=== PATIENT | female | born 1970 | race Hispanic/Latino ===

== ENCOUNTER 2016-08-07 08:09 | Outpatient (CLI) | payer BC, OTHER ==
[2016-08-07 08:55] LABS: #Basophils 0.1 thou/uL (0.0-0.2); #Eosinphils 0.1 thou/uL (0.0-0.7); #Lymphocytes 1.6 thou/uL (1.20-3.40); #Monocytes 0.5 thou/uL (0.11-0.59); #Neutrophils 4.5 thou/uL (1.40-6.50); %Basophils 1.3 % (0.0-1.0); %Eosinophils 1.2 % (0.0-10.0); %Lymphocytes 23.8 % (21.0-51.0); %Monocytes 7.3 % (0.0-10.0); %Neutrophils 66.5 % (42.0-75.0); Hemoglobin 13.1 g/dL (12.0-16.0); Mean Corpuscular HGB CONC 33.1 g/dL (32.0-36.0); Mean Corpuscular Hemoglobin 31.1 pg (27.0-31.0); Mean Corpuscular Volume 93.9 fl (81.0-99.0); Mean Platelet Volume 9.1 fL (7.4-10.4); Platelet Count 327 thou/uL (130-400); RBC Distribution Width 11.6 % (11.5-14.5); White Blood Cell (WBC) Count 6.7 thou/uL (4.8-10.8)
[2016-08-07 09:15] LABS: ALT (SGPT) 13 U/L (0-55); AST (SGOT) 16 U/L (5-34); Albumin 4.6 g/dL (3.5-5.0); Alkaline Phosphatase 78 U/L (40-150); Anion Gap 14 mmol/L (10-20); BUN (Urea Nitrogen) 20 mg/dL (7.0-18.7); Bilirubin, Total 0.5 mg/dL (0.2-1.2); CRP (Inflammatory) 1.17 mg/dL (= or < 0.5); Calc. Creatinine Clearance 0 mL/min (70-130); Calcium 9.7 mg/dL (7.8-10.44); Carbon Dioxide 25 mmol/L (22-29); Chloride 103 mmol/L (98-107); Estimated GFR-MDRD 83; Globulin 3.4 g/dL (2.4-3.5); Glucose 94 mg/dL (70-105); Potassium 4.2 mmol/L (3.5-5.1); Sodium 138 mmol/L (136-145)
--- NOTE | 2016-08-07 10:13 | RAD ---
LEFT KNEE 4 VIEWS: HISTORY: Left knee pain. FINDINGS/IMPRESSION: No fracture, dislocation, or bony destruction is seen. POS: [id number]
== END 2016-08-07 08:10 | disposition home or self-care (01) ==
LOC: MADLAB 08:09
PROVIDERS: ATTEND Internal Medicine Rheumatology
DX: M17.12 Unilateral primary osteoarthritis, left knee (principal); M45.0 Ankylosing spondylitis of multiple sites in spine
CPT/HCPCS: 36415; 80053; 85025; 85652; 86140

== ENCOUNTER 2016-08-10 11:32 | Outpatient (CLI) | payer BC, OTHER | END 2016-08-10 11:33 | disposition home or self-care (01) | LOC: MADLAB 11:32 | PROVIDERS: ATTEND Internal Medicine Rheumatology | DX: M45.0 Ankylosing spondylitis of multiple sites in spine (principal) | CPT/HCPCS: 36415; 86480 ==

== ENCOUNTER 2017-08-26 10:50 | Outpatient (CLI) | payer BC, OTHER ==
[2017-08-26 10:59] LABS: #Basophils 0.1 thou/uL (0.0-0.2); #Eosinphils 0.1 thou/uL (0.0-0.7); #Lymphocytes 2.7 thou/uL (1.20-3.40); #Monocytes 0.8 thou/uL (0.11-0.59); #Neutrophils 3.5 thou/uL (1.40-6.50); %Basophils 1.4 % (0.0-1.0); %Eosinophils 1.5 % (0.0-10.0); %Lymphocytes 37.4 % (21.0-51.0); %Monocytes 10.7 % (0.0-10.0); Hemoglobin 12.1 g/dL (12.0-16.0); Mean Corpuscular HGB CONC 32.9 g/dL (32.0-36.0); Mean Corpuscular Hemoglobin 31.7 pg (27.0-31.0); Mean Corpuscular Volume 96.5 fl (81.0-99.0); Mean Platelet Volume 7.1 fL (7.4-10.4); Platelet Count 317 thou/uL (130-400); RBC Distribution Width 12.7 % (11.5-14.5); Red Blood Cell (RBC) Count 3.82 mill/uL (4.20-5.40); White Blood Cell (WBC) Count 7.1 thou/uL (4.8-10.8)
[2017-08-26 11:13] LABS: ALT (SGPT) 14 U/L (8-55); AST (SGOT) 17 U/L (5-34); Albumin 4.2 g/dL (3.5-5.0); Alkaline Phosphatase 65 U/L (40-150); Anion Gap 14 mmol/L (10-20); BUN (Urea Nitrogen) 21 mg/dL (7.0-18.7); Bilirubin, Total 0.4 mg/dL (0.2-1.2); Calc. Creatinine Clearance 0 mL/min (70-130); Calcium 9.1 mg/dL (7.8-10.44); Carbon Dioxide 23 mmol/L (22-29); Chloride 104 mmol/L (98-107); Estimated GFR-MDRD 83; Globulin 3.5 g/dL (2.4-3.5); Glucose 68 mg/dL (70-105); Potassium 4.2 mmol/L (3.5-5.1); Protein, Total 7.7 g/dL (6.0-8.3); Sodium 137 mmol/L (136-145)
[2017-08-26 16:54] LABS: CRP (Inflammatory) 1.09 mg/dL (= or < 0.5)
== END 2017-08-26 10:51 | disposition home or self-care (01) ==
LOC: MADLAB 10:50
PROVIDERS: ATTEND Internal Medicine Rheumatology
DX: M45.0 Ankylosing spondylitis of multiple sites in spine (principal)
CPT/HCPCS: 36415; 80053; 85025; 85652; 86140

== ENCOUNTER 2017-11-24 07:27 | Outpatient (CLI) | payer BC, OTHER ==
[2017-11-24 07:55] LABS: #Basophils 0.1 thou/uL (0.0-0.2); #Eosinphils 0.2 thou/uL (0.0-0.7); #Lymphocytes 2.6 thou/uL (1.20-3.40); #Monocytes 0.7 thou/uL (0.11-0.59); #Neutrophils 3.3 thou/uL (1.40-6.50); %Basophils 1.2 % (0.0-1.0); %Eosinophils 2.7 % (0.0-10.0); %Lymphocytes 38.4 % (21.0-51.0); %Neutrophils 47.8 % (42.0-75.0); Hemoglobin 12.1 g/dL (12.0-16.0); Mean Corpuscular HGB CONC 32.3 g/dL (32.0-36.0); Mean Corpuscular Hemoglobin 29.6 pg (27.0-31.0); Mean Corpuscular Volume 91.6 fl (81.0-99.0); Mean Platelet Volume 7.9 fL (7.4-10.4); Platelet Count 342 thou/uL (130-400); RBC Distribution Width 12.2 % (11.5-14.5); Red Blood Cell (RBC) Count 4.09 mill/uL (4.20-5.40); White Blood Cell (WBC) Count 6.9 thou/uL (4.8-10.8)
[2017-11-24 08:11] LABS: ALT (SGPT) 15 U/L (8-55); AST (SGOT) 17 U/L (5-34); Alkaline Phosphatase 64 U/L (40-150); Anion Gap 13 mmol/L (10-20); BUN (Urea Nitrogen) 23 mg/dL (7.0-18.7); Bilirubin, Total 0.4 mg/dL (0.2-1.2); Calc. Creatinine Clearance 0 mL/min (70-130); Calcium 8.9 mg/dL (7.8-10.44); Carbon Dioxide 24 mmol/L (22-29); Chloride 105 mmol/L (98-107); Estimated GFR-MDRD 89; Globulin 3.5 g/dL (2.4-3.5); Glucose 93 mg/dL (70-105); Potassium 4.3 mmol/L (3.5-5.1); Protein, Total 7.5 g/dL (6.0-8.3); Sodium 138 mmol/L (136-145)
== END 2017-11-24 07:28 | disposition home or self-care (01) ==
LOC: MADLAB 07:27
PROVIDERS: ATTEND Internal Medicine Rheumatology
DX: M45.0 Ankylosing spondylitis of multiple sites in spine (principal)
CPT/HCPCS: 36415; 80053; 85025; 85652; 86140

== ENCOUNTER 2018-03-03 08:00 | Outpatient (CLI) | payer BC, OTHER ==
[2018-03-03 08:22] LABS: #Basophils 0.1 thou/uL (0.0-0.2); #Eosinphils 0.2 thou/uL (0.0-0.7); #Lymphocytes 2.1 thou/uL (1.20-3.40); #Monocytes 0.5 thou/uL (0.11-0.59); #Neutrophils 2.8 thou/uL (1.40-6.50); %Eosinophils 2.8 % (0.0-10.0); %Lymphocytes 36.9 % (21.0-51.0); %Monocytes 8.9 % (0.0-10.0); %Neutrophils 50.4 % (42.0-75.0); Hemoglobin 12.5 g/dL (12.0-16.0); Mean Corpuscular HGB CONC 32.3 g/dL (32.0-36.0); Mean Corpuscular Hemoglobin 30.1 pg (27.0-31.0); Mean Corpuscular Volume 93.1 fL (78.0-98.0); Mean Platelet Volume 8.5 fL (7.4-10.4); Platelet Count 299 thou/uL (130-400); RBC Distribution Width 12.8 % (11.5-14.5); Red Blood Cell (RBC) Count 4.17 mill/uL (4.20-5.40); White Blood Cell (WBC) Count 5.6 thou/uL (4.8-10.8)
[2018-03-03 08:35] LABS: ALT (SGPT) 18 U/L (8-55); AST (SGOT) 17 U/L (5-34); Albumin 4.2 g/dL (3.5-5.0); Alkaline Phosphatase 77 U/L (40-150); Anion Gap 13 mmol/L (10-20); BUN (Urea Nitrogen) 24 mg/dL (7.0-18.7); Bilirubin, Total 0.4 mg/dL (0.2-1.2); Calc. Creatinine Clearance 0 mL/min (70-130); Calcium 9.4 mg/dL (7.8-10.44); Carbon Dioxide 24 mmol/L (22-29); Chloride 106 mmol/L (98-107); Estimated GFR-MDRD 75; Globulin 3.5 g/dL (2.4-3.5); Glucose 93 mg/dL (70-105); Potassium 4.3 mmol/L (3.5-5.1); Protein, Total 7.7 g/dL (6.0-8.3); Sodium 139 mmol/L (136-145)
== END 2018-03-03 08:01 | disposition home or self-care (01) ==
LOC: MADLAB 08:00
PROVIDERS: ATTEND Internal Medicine Rheumatology
DX: M45.0 Ankylosing spondylitis of multiple sites in spine (principal)
CPT/HCPCS: 36415; 80053; 85025; 85652; 86140

== ENCOUNTER 2018-10-14 07:36 | Outpatient (CLI) | payer BC, OTHER ==
[2018-10-14 08:29] LABS: #Basophils 0.1 thou/uL (0.0-0.2); #Eosinphils 0.2 thou/uL (0.0-0.7); #Lymphocytes 1.9 thou/uL (1.20-3.40); #Monocytes 0.5 thou/uL (0.11-0.59); %Basophils 1.7 % (0.0-1.0); %Eosinophils 2.8 % (0.0-10.0); %Lymphocytes 33.5 % (21.0-51.0); %Monocytes 8.5 % (0.0-10.0); %Neutrophils 53.5 % (42.0-75.0); Mean Corpuscular HGB CONC 32.6 g/dL (32.0-36.0); Mean Corpuscular Hemoglobin 30.5 pg (27.0-31.0); Mean Corpuscular Volume 93.6 fL (78.0-98.0); Mean Platelet Volume 8.5 fL (7.4-10.4); Platelet Count 273 thou/uL (130-400); RBC Distribution Width 11.7 % (11.5-14.5); Red Blood Cell (RBC) Count 3.94 mill/uL (4.20-5.40); White Blood Cell (WBC) Count 5.5 thou/uL (4.8-10.8)
[2018-10-14 08:50] LABS: ALT (SGPT) 24 U/L (8-55); AST (SGOT) 21 U/L (5-34); Albumin 4.2 g/dL (3.5-5.0); Alkaline Phosphatase 74 U/L (40-150); Anion Gap 11 mmol/L (10-20); BUN (Urea Nitrogen) 22 mg/dL (7.0-18.7); Bilirubin, Total 0.4 mg/dL (0.2-1.2); Calc. Creatinine Clearance 0 mL/min (70-130); Calcium 9.4 mg/dL (7.8-10.44); Carbon Dioxide 28 mmol/L (22-29); Chloride 106 mmol/L (98-107); Estimated GFR-MDRD 80; Globulin 3.4 g/dL (2.4-3.5); Glucose 101 mg/dL (70-105); Potassium 4.1 mmol/L (3.5-5.1); Protein, Total 7.6 g/dL (6.0-8.3); Sodium 141 mmol/L (136-145)
[2018-10-14 16:58] LABS: CRP (Inflammatory) 0.75 mg/dL (= or < 0.5)
== END 2018-10-14 07:37 | disposition home or self-care (01) ==
LOC: MADLAB 07:36
PROVIDERS: ATTEND Internal Medicine Rheumatology
DX: M45.0 Ankylosing spondylitis of multiple sites in spine (principal)
CPT/HCPCS: 36415; 80053; 85025; 85652; 86140

== ENCOUNTER 2019-04-26 07:23 | Outpatient (CLI) | payer BC, OTHER ==
[2019-04-26 07:45] LABS: #Basophils 0.1 thou/uL (0.0-0.2); #Eosinphils 0.2 thou/uL (0.0-0.7); #Lymphocytes 2.4 thou/uL (1.20-3.40); #Monocytes 0.6 thou/uL (0.11-0.59); #Neutrophils 3.5 thou/uL (1.40-6.50); %Basophils 1.3 % (0.0-1.0); %Eosinophils 2.7 % (0.0-10.0); %Lymphocytes 35.4 % (21.0-51.0); %Monocytes 9.5 % (0.0-10.0); %Neutrophils 51.1 % (42.0-75.0); Hemoglobin 12.6 g/dL (12.0-16.0); Mean Corpuscular HGB CONC 32.6 g/dL (32.0-36.0); Mean Corpuscular Hemoglobin 31.1 pg (27.0-31.0); Mean Corpuscular Volume 95.5 fL (78.0-98.0); Platelet Count 264 thou/uL (130-400); RBC Distribution Width 12.4 % (11.5-14.5); Red Blood Cell (RBC) Count 4.04 mill/uL (4.20-5.40); White Blood Cell (WBC) Count 6.7 thou/uL (4.8-10.8)
[2019-04-26 08:37] LABS: ALT (SGPT) 24 U/L (8-55); AST (SGOT) 21 U/L (5-34); Albumin 4.3 g/dL (3.5-5.0); Alkaline Phosphatase 73 U/L (40-110); Anion Gap 13 mmol/L (10-20); BUN (Urea Nitrogen) 18 mg/dL (7.0-18.7); Bilirubin, Total 0.4 mg/dL (0.2-1.2); CRP (Inflammatory) 0.77 mg/dL (= or < 0.5); Calc. Creatinine Clearance 0 mL/min (70-130); Calcium 9.4 mg/dL (7.8-10.44); Carbon Dioxide 25 mmol/L (22-29); Chloride 105 mmol/L (98-107); Estimated GFR-MDRD 81; Globulin 3.4 g/dL (2.4-3.5); Glucose 90 mg/dL (70-105); Protein, Total 7.7 g/dL (6.0-8.3); Sodium 139 mmol/L (136-145)
== END 2019-04-26 07:24 | disposition home or self-care (01) ==
LOC: MADLAB 07:23
PROVIDERS: ATTEND Internal Medicine Rheumatology
DX: M45.0 Ankylosing spondylitis of multiple sites in spine (principal)
CPT/HCPCS: 36415; 80053; 85025; 85652; 86140

== ENCOUNTER 2020-02-07 07:42 | Outpatient (CLI) | payer BC, OTHER ==
[2020-02-07 07:58] LABS: #Basophils 0.1 thou/uL (0.0-0.2); #Eosinphils 0.1 thou/uL (0.0-0.7); #Lymphocytes 2.1 thou/uL (1.20-3.40); #Monocytes 0.6 thou/uL (0.11-0.59); %Basophils 1.6 % (0.0-1.0); %Eosinophils 2.2 % (0.0-10.0); %Lymphocytes 35.6 % (21.0-51.0); %Monocytes 9.3 % (0.0-10.0); %Neutrophils 51.2 % (42.0-75.0); Hemoglobin 13.2 g/dL (12.0-16.0); Mean Corpuscular HGB CONC 31.1 g/dL (32.0-36.0); Mean Corpuscular Hemoglobin 29.5 pg (27.0-31.0); Mean Corpuscular Volume 94.9 fL (78.0-98.0); Mean Platelet Volume 8.9 fL (7.4-10.4); Platelet Count 314 thou/uL (130-400); RBC Distribution Width 12.1 % (11.5-14.5); Red Blood Cell (RBC) Count 4.48 mill/uL (4.20-5.40); White Blood Cell (WBC) Count 5.9 thou/uL (4.8-10.8)
[2020-02-07 08:17] LABS: ALT (SGPT) 23 U/L (8-55); AST (SGOT) 24 U/L (5-34); Albumin 4.4 g/dL (3.5-5.0); Alkaline Phosphatase 77 U/L (40-110); Anion Gap 13 mmol/L (10-20); BUN (Urea Nitrogen) 13 mg/dL (7.0-18.7); Bilirubin, Total 0.4 mg/dL (0.2-1.2); CRP (Inflammatory) 1.04 mg/dL (= or < 0.5); Calc. Creatinine Clearance 0 mL/min (70-130); Calcium 9.3 mg/dL (7.8-10.44); Carbon Dioxide 27 mmol/L (22-29); Chloride 103 mmol/L (98-107); Estimated GFR-MDRD 82; Globulin 3.7 g/dL (2.4-3.5); Glucose 84 mg/dL (70-105); Protein, Total 8.1 g/dL (6.0-8.3); Sodium 139 mmol/L (136-145)
== END 2020-02-07 07:43 | disposition home or self-care (01) ==
LOC: MADLAB 07:42
PROVIDERS: ATTEND Internal Medicine Rheumatology
DX: M45.0 Ankylosing spondylitis of multiple sites in spine (principal)
CPT/HCPCS: 36415; 80053; 85025; 85652; 86140

== ENCOUNTER 2020-06-28 16:11 | Emergency (ER) | payer BC ==
[~2020-06-28 16:11] MED LIST: Iopamidol 370 76% 100 ML VIAL ONE; Sodium Chloride 0.9% 1,000 ML BAG ONE
[2020-06-28] MEDS ORDERED: Morphine 4 MG/ML VIAL ONE (17:15)
[2020-06-28] MEDS ORDERED: Ondansetron PF 4 MG/2 ML Vial ONE (17:15)
--- NOTE | 2020-06-28 17:19 | RAD ---
RADIOGRAPH CHEST 1 VIEW: DATE: 06/28/2020 HISTORY: 49-year-old female with right-sided chest pain FINDINGS: There are no airspace densities, pulmonary edema, pneumothorax, or cardiomegaly. The lateral costophr enic angles are sharp. No pneumoperitoneum. IMPRESSION: No acute cardiopulmonary findings.
[2020-06-28 18:06] LABS: Bilirubin Negative (Negative); Blood, Urine Trace (Negative); Glucose, Urine (Dipstick) Negative (Negative); Ketone, Urine Negative (Negative); Leukocyte Trace (Negative); Nitrite Negative (Negative); Protein, Urine (Dipstick) Negative (Neg-Trace); Specific Gravity, Urine 1.015 (1.005-1.030); Urobilinogen 0.2 mg/dL (Less than 2)
[2020-06-28 18:08] LABS: Bacteria/HPF 1+ HPF (None Seen); Clarity Hazy (Clear); RBC/HPF 0-3 HPF (0-3)
[2020-06-28 18:10] LABS: #Basophils 0.1 thou/uL (0.0-0.2); #Eosinphils 0.2 thou/uL (0.0-0.7); #Lymphocytes 2.1 thou/uL (1.20-3.40); #Monocytes 1.1 thou/uL (0.11-0.59); #Neutrophils 6.7 thou/uL (1.40-6.50); %Basophils 1.1 % (0.0-1.0); %Eosinophils 1.5 % (0.0-10.0); %Lymphocytes 20.7 % (21.0-51.0); %Monocytes 10.8 % (0.0-10.0); %Neutrophils 65.9 % (42.0-75.0); Hemoglobin 13.4 g/dL (12.0-16.0); Mean Corpuscular HGB CONC 34.2 g/dL (32.0-36.0); Mean Corpuscular Hemoglobin 32.2 pg (27.0-31.0); Mean Corpuscular Volume 94.3 fL (78.0-98.0); Mean Platelet Volume 7.8 fL (7.4-10.4); Platelet Count 275 thou/uL (130-400); RBC Distribution Width 11.3 % (11.5-14.5); Red Blood Cell (RBC) Count 4.17 mill/uL (4.20-5.40); White Blood Cell (WBC) Count 10.2 thou/uL (4.8-10.8)
[2020-06-28 18:18] LABS: ALT (SGPT) 30 U/L (8-55); AST (SGOT) 23 U/L (5-34); Albumin 4.4 g/dL (3.5-5.0); Alkaline Phosphatase 95 U/L (40-110); Anion Gap 16 mmol/L (10-20); BUN (Urea Nitrogen) 17 mg/dL (7.0-18.7); Bilirubin, Total 0.3 mg/dL (0.2-1.2); Calc. Creatinine Clearance 0 mL/min (70-130); Carbon Dioxide 22 mmol/L (22-29); Chloride 105 mmol/L (98-107); Globulin 3.3 g/dL (2.4-3.5); Glucose 106 mg/dL (70-105); Lipase 10 U/L (8-78); Potassium 4.2 mmol/L (3.5-5.1); Protein, Total 7.7 g/dL (6.0-8.3); Sodium 139 mmol/L (136-145)
--- NOTE | 2020-06-28 19:46 | CT ---
CT ABDOMEN AND PELVIS PERFORMED WITH CONTRAST ENHANCEMENT: 06/28/20 HISTORY: Abdominal pain. The lung bases are clear. The liver, spleen, pancreas, and gallbladder regions all appear unremarkable. Right and left adrenal glands are normal. Right and left kidneys are normal in size. Three punctate n onobstructing left renal calculi are seen. No obstruction or evidence of any ureteral calculus. No si gnificant periaortic or mesenteric adenopathy. No signs of obstruction. CT OF PELVIS PERFORMED WITH CONTRAST: The appendix is unremarkable. No adenopathy, mass or free fluid. Air seen at the soft tissue along th e anterior abdominal wall is presumed to be related to injection. Arthritic changes of the spine and postop changes of the L5-S1 level are seen. IMPRESSION: Punctate, nonobstructing left renal calculi. No acute findings of the abdomen or pelvis. POS: OFF
== END 2020-06-28 21:26 | disposition short-term general hospital (02) ==
LOC: MADERS 16:11
DX: R10.11 Right upper quadrant pain (principal); R10.816 Epigastric abdominal tenderness; R00.0 Tachycardia, unspecified; M45.9 Ankylosing spondylitis of unspecified sites in spine; R11.2 Nausea with vomiting, unspecified; R19.7 Diarrhea, unspecified
CPT/HCPCS: 71045; 74177; 80053; 81003; 81015; 83605; 83690; 84484; 85025; 93005; 94760; 96374; 96375; J2270; J2405; J7050; Q9967

== ENCOUNTER 2020-12-30 10:44 | Outpatient (CLI) | payer BC, OTHER ==
[2020-12-30 11:19] LABS: ALT (SGPT) 43 U/L (8-55); AST (SGOT) 33 U/L (5-34); Albumin 4.2 g/dL (3.5-5.0); Alkaline Phosphatase 95 U/L (40-110); Anion Gap 14 mmol/L (10-20); BUN (Urea Nitrogen) 15 mg/dL (7.0-18.7); Bilirubin, Total 0.3 mg/dL (0.2-1.2); CRP (Inflammatory) 1.01 mg/dL (= or < 0.5); Calc. Creatinine Clearance 0 mL/min (70-130); Calcium 9.7 mg/dL (7.8-10.44); Carbon Dioxide 28 mmol/L (22-29); Chloride 102 mmol/L (98-107); Globulin 3.6 g/dL (2.4-3.5); Glucose 97 mg/dL (70-105); Potassium 4.1 mmol/L (3.5-5.1); Protein, Total 7.8 g/dL (6.0-8.3); Sodium 140 mmol/L (136-145)
[2020-12-30 11:27] LABS: #Basophils 0.1 thou/uL (0.0-0.2); #Eosinphils 0.2 thou/uL (0.0-0.7); #Lymphocytes 2.6 thou/uL (1.20-3.40); #Monocytes 0.7 thou/uL (0.11-0.59); #Neutrophils 3.1 thou/uL (1.40-6.50); %Basophils 1.3 % (0.0-1.0); %Eosinophils 2.3 % (0.0-10.0); %Lymphocytes 38.5 % (21.0-51.0); %Monocytes 10.8 % (0.0-10.0); %Neutrophils 47.1 % (42.0-75.0); Hemoglobin 13.2 g/dL (12.0-16.0); Mean Corpuscular Hemoglobin 32.1 pg (27.0-31.0); Mean Corpuscular Volume 97.4 fL (78.0-98.0); Platelet Count 297 thou/uL (130-400); Red Blood Cell (RBC) Count 4.11 mill/uL (4.20-5.40); White Blood Cell (WBC) Count 6.6 thou/uL (4.8-10.8)
== END 2020-12-30 10:45 | disposition home or self-care (01) ==
LOC: MADLAB 10:44
PROVIDERS: ATTEND Internal Medicine Rheumatology
DX: M45.0 Ankylosing spondylitis of multiple sites in spine (principal)
CPT/HCPCS: 36415; 80053; 85025; 85652; 86140

== ENCOUNTER 2021-11-04 07:33 | Outpatient (CLI) | payer BC, OTHER ==
[2021-11-04 08:09] LABS: #Basophils 0.1 thou/uL (0.0-0.2); #Eosinphils 0.2 thou/uL (0.0-0.7); #Lymphocytes 2.4 thou/uL (1.20-3.40); #Monocytes 0.6 thou/uL (0.11-0.59); #Neutrophils 2.8 thou/uL (1.40-6.50); %Basophils 1.8 % (0.0-1.0); %Lymphocytes 39.5 % (21.0-51.0); %Monocytes 10.3 % (0.0-10.0); %Neutrophils 45.5 % (42.0-75.0); Mean Corpuscular HGB CONC 31.8 g/dL (32.0-36.0); Mean Corpuscular Hemoglobin 30.1 pg (27.0-31.0); Mean Corpuscular Volume 94.8 fL (78.0-98.0); Mean Platelet Volume 10.3 fL (7.4-10.4); Platelet Count 266 thou/uL (130-400); RBC Distribution Width 12.1 % (11.5-14.5); White Blood Cell (WBC) Count 6.1 thou/uL (4.8-10.8)
[2021-11-04 08:14] LABS: ALT (SGPT) 22 U/L (8-55); AST (SGOT) 22 U/L (5-34); Albumin 4.3 g/dL (3.5-5.0); Alkaline Phosphatase 84 U/L (40-110); Anion Gap 17 mmol/L (10-20); BUN (Urea Nitrogen) 18 mg/dL (7.0-18.7); Bilirubin, Total 0.5 mg/dL (0.2-1.2); CRP (Inflammatory) 1.41 mg/dL (= or < 0.5); Calc. Creatinine Clearance 0 mL/min (70-130); Calcium 9.5 mg/dL (7.8-10.44); Carbon Dioxide 23 mmol/L (22-29); Chloride 103 mmol/L (98-107); Globulin 3.6 g/dL (2.4-3.5); Glucose 101 mg/dL (70-105); Potassium 3.9 mmol/L (3.5-5.1); Protein, Total 7.9 g/dL (6.0-8.3); Sodium 139 mmol/L (136-145)
== END 2021-11-04 07:34 | disposition home or self-care (01) ==
LOC: MADLAB 07:33
PROVIDERS: ATTEND Internal Medicine Rheumatology
DX: M45.0 Ankylosing spondylitis of multiple sites in spine (principal)
CPT/HCPCS: 36415; 80053; 85025; 85652; 86140

== ENCOUNTER 2024-05-10 08:01 | Outpatient (CLI) | payer BC | END 2024-05-10 08:02 | disposition home or self-care (01) | LOC: MADRAD 08:01 | PROVIDERS: ATTEND Orthopaedic Surgery | DX: M54.2 Cervicalgia (principal); M54.50 Low back pain, unspecified; M46.1 Sacroiliitis, not elsewhere classified; S32.10XA Unspecified fracture of sacrum, initial encounter for closed fracture; M47.816 Spondylosis without myelopathy or radiculopathy, lumbar region; Z98.1 Arthrodesis status; Z96.698 Presence of other orthopedic joint implants | CPT/HCPCS: 72040; 72100; 72190 ==